=== PATIENT | male | born 1930 | race Caucasian/White ===

== ENCOUNTER 2017-02-10 19:21 | Inpatient (IN) | payer MEDICARE, MEDICAID ==
[2017-02-10 19:44] LABS: #Eosinphils 0.2 thou/uL (0.0-0.7); #Lymphocytes 1.1 thou/uL (1.20-3.40); #Monocytes 0.9 thou/uL (0.11-0.59); #Neutrophils 6.3 thou/uL (1.40-6.50); %Eosinophils 2.2 % (0.0-10.0); %Lymphocytes 13.3 % (21.0-51.0); %Monocytes 10.6 % (0.0-10.0); Hematocrit 39.2 % (42.0-52.0); Mean Platelet Volume 7.1 fL (7.4-10.4); Red Blood Cell (RBC) Count 4.09 mill/uL (4.70-6.10); White Blood Cell (WBC) Count 8.6 thou/uL (4.8-10.8)
[2017-02-10 20:06] LABS: PTT 35.6 SEC (22.9-36.1); Prothrombin Time 14.5 SEC (12.0-14.7)
[2017-02-10 20:07] LABS: ALT (SGPT) 36 U/L (8-55); AST (SGOT) 47 U/L (5-34); Alkaline Phosphatase 94 U/L (40-150); Anion Gap 12 mmol/L (10-20); BUN (Urea Nitrogen) 13 mg/dL (8.4-25.7); Bilirubin, Total 0.6 mg/dL (0.2-1.2); Calc. Creatinine Clearance 0 mL/min (70-130); Calcium 8.8 mg/dL (7.8-10.44); Carbon Dioxide 24 mmol/L (23-31); Chloride 102 mmol/L (98-107); Estimated GFR-MDRD 80; Globulin 3.5 g/dL (2.4-3.5); Protein, Total 6.7 g/dL (5.8-8.1)
[2017-02-10 20:11] LABS: Lactic Acid - Sepsis 1.8 mmol/L (0.5-2.2)
[2017-02-10 20:17] LABS: Lipase Less than 4 U/L (8-78); Magnesium 1.8 mg/dL (1.6-2.6)
[2017-02-10 20:20] LABS: Troponin I 0.012 ng/mL (< 0.028)
--- NOTE | 2017-02-10 21:34 | RAD ---
PORTABLE CHEST: 02/10/17 HISTORY: Altered mental status. Syncope. The heart size is within normal limits. There are atherosclerotic changes of the aorta. The lungs ar e clear of infiltrates. There are arthritic changes in the shoulders. IMPRESSION: No active intrathoracic disease. POS: [facility]
--- NOTE | 2017-02-10 22:28 | CT ---
CT OF BRAIN PERFORMED WITHOUT CONTRAST ENHANCEMENT: 02/10/17 HISTORY: Altered mental status. There is generalized ventricular and sulcal prominence with decreased attenuation of the periventric ular white matter consistent with some chronic ischemic white matter change. There is no signs of in tracerebral hemorrhage or extra-axial fluid collections. Mastoid air cells are clear. The visualized sinuses show fairly extensive mucosal disease including the bilateral ethmoid, sphenoid, maxillary and frontal sinus regions. IMPRESSION: No acute intracranial abnormalities. POS: [facility]
[2017-02-10 23:09] LABS: Bilirubin Negative (Negative); Blood, Urine Moderate (Negative); Glucose, Urine (Dipstick) Negative (Negative); Ketone, Urine Negative (Negative); Nitrite Negative (Negative); Protein, Urine (Dipstick) Trace mg/dL (Neg-Trace); Urobilinogen > or = 8.0 mg/dL (0.2-1.0)
[2017-02-10 23:13] LABS: Bacteria/HPF None Seen HPF (None Seen); Hyaline Casts/LPF 0-3 HYALINE CAST LPF (0-3 Hyaline); RBC/HPF 21-50 HPF (0-3); Squamous Epithelial 0-3 HPF (0-3); WBC/HPF 0-3 HPF (0-3)
[2017-02-10 23:18] LABS: T4 4.1 ug/dL (4.87-11.72)
[2017-02-10] MEDS ORDERED: cefTRIAXone\\ROCEPHIN 2 GM VIAL ONE (23:57)
[2017-02-10] MEDS ORDERED: Sodium Chloride 0.9% 100 ML ONE (23:57)
[2017-02-11] MEDS ORDERED: Ondansetron HCl/PF 4 MG/2 ML Vial IVP PRN ×2 (03:04→06:50)
[2017-02-11] MEDS ORDERED: Ondansetron ODT 4 MG TAB SL PRN (03:04)
[2017-02-11] MEDS ORDERED: Sodium Chloride 0.9% 1,000 ML IV SCH (03:04)
[2017-02-11 03:33] VITALS: BMI 19.5
[2017-02-11] MEDS ORDERED: Senokot 8.6 MG TAB PO PRN (06:50)
[2017-02-11] MEDS ORDERED: Milk Of Magnesia 30 ML UDCUP PO PRN (06:50)
[2017-02-11] MEDS ORDERED: Eucerin (Mineral Oil/Petrolatum,White) 30 gm Jar TOP PRN (06:50)
[2017-02-11] MEDS ORDERED: Ondansetron ODT 4 MG TAB PO PRN (06:50)
[2017-02-11] MEDS ORDERED: Artificial Tears 18 DROP/0.9 ML EA EYE PRN (06:50)
[2017-02-11] MEDS ORDERED: Acetaminophen 325 MG TAB PO PRN (06:50)
[2017-02-11] MEDS ORDERED: Loperamide HCl 2 MG CAP PO PRN (06:50)
[2017-02-11] MEDS ORDERED: Mag-Al 1200 mg/1200 mg/30 ML UDCUP PO PRN (06:50)
[2017-02-11] MEDS ORDERED: Loratadine 10 MG TAB PO PRN (06:50)
[2017-02-11] MEDS ORDERED: Sodium Chloride 0.65% Nasal 44 ML BOT EA NARE PRN (06:50)
[2017-02-11] MEDS ORDERED: hydrALAZINE 20 MG/ML VIAL SLOW IVP PRN (06:50)
[2017-02-11] MEDS ORDERED: Zolpidem Tartrate 5 MG TAB PO PRN (06:50)
[2017-02-11] MEDS ORDERED: Diabetic Tussin 200 MG/10 ML UDCUP PO PRN (06:50)
[2017-02-11] MEDS ORDERED: HYDROcodone/Acetaminophen 5/325 mg Tablet PO PRN (06:50)
[2017-02-11] MEDS ORDERED: Lorazepam 0.5 MG TAB PO PRN (06:53)
[2017-02-11] MEDS ORDERED: Melatonin 3 MG TAB PO PRN (07:14)
[2017-02-11] MEDS ORDERED: FLU VACC TS2017-18 (>65YR) 0.5 ML SYRINGE IM ONE (09:00)
[2017-02-11] MEDS: Folic Acid 1 MG TAB PO SCH (09:22)
[2017-02-11] MEDS: Gabapentin 300 MG CAP PO SCH ×2 (09:22→20:15)
[2017-02-11] MEDS: Cyanocobalamin (Vitamin B-12) 1,000 MCG TAB PO SCH (09:22)
[2017-02-11] MEDS: Escitalopram Oxalate 10 mg Tablet PO SCH (09:23)
[2017-02-11] MEDS: Enoxaparin Sodium 40 MG/0.4 ML SYRINGE SC SCH (09:23)
[2017-02-11] MEDS: Artificial Tears 18 DROP/0.9 ML EA EYE SCH ×4 (09:35→21:09)
[2017-02-11] MEDS: NS 0.9% w/ 20 MEQ KCL 1,000 ML/1,000 ML BAG IV SCH ×3 (09:37→23:28)
[2017-02-11] MEDS: Metoprolol Tartrate 100 MG TAB PO SCH ×2 (09:40→20:15)
--- NOTE | 2017-02-11 13:10 | HP ---
PRIMARY CARE PHYSICIAN: Camryn Woods M.D. REASON FOR ADMISSION: Acute encephalopathy, dehydration, and pneumonia. HISTORY OF PRESENT ILLNESS: An 86-year-old male who lives at prison who was complaining of sh ortness of breath and cough and low grade fever at prison and that is why patient was taken to [facility] where they did CT scan and patient was found with infiltration to right up per lobe and left lung base. The patient was given antibiotic therapy orally with levofloxacin. Th e patient was continued to have deterioration, he was hallucinating, he was having delusion, he was having declining mental status and that is why prison sent him back to the emergency room for evaluation. As per report, the patient did not have any fever at prison. He was not having a ny other complaints other than altered mental status. Patient's family member was called to get history and they reports that when they did CT scan at [facility], they were told that he has hydrocephalus and they are going to see a physician on coming Mon. Today in our emergency room, this patient had CT brain which did not show any hydrocephalus . This patient is living at prison in [place] and his primary care physician wanted to transfer him for further evaluation. Today in our emergency room, his chest x-ray was not showing any infiltration. His routine blood te sts showed macrocytic anemia, low sodium and low potassium. His blood culture was negative by the t olga of dictation. REVIEW OF SYSTEMS: All review of systems tried to review with the patient, but unable to review bec ause of advanced dementia and encephalopathy. PAST MEDICAL HISTORY: Alzheimer's dementia with behavioral disturbance, insomnia, vitamin B12 defic iency, glaucoma, hypothyroidism, dyslipidemia, and hypertension. PAST SURGICAL HISTORY: Patient is not able to provide any surgical history and not available at [facility]. PAST PSYCHIATRIC HISTORY: Bipolar disorder, depression and anxiety, Alzheimer's dementia with behav ioral disturbance. SOCIAL HISTORY: Patient is living at [facility] in [place]. No history of tobacco, al cohol or illicit drug abuse. Patient's son is surrogate decision maker. FAMILY HISTORY: No strong family history of premature coronary artery disease, stroke or cancer. ALLERGIES: HYDROCHLOROTHIAZIDE and PENICILLIN. CURRENT HOME MEDICATIONS: Acetaminophen 650 mg q.6 hourly p.r.n., Lipitor 10 mg p.o. daily, vitamin B12 1000 mcg p.o. daily, Depakote ER 500 mg p.o. at bedtime, Aricept 10 mg p.o. at bedtime, Lexapro 10 mg p.o. daily, gabapentin 300 mg p.o. b.i.d., Xalatan eyedrops at bedtime, Levaquin 500 mg p.o. daily, Synthroid 75 mcg p.o. daily, Ativan 0.5 mg p.o. b.i.d., Milk of Magnesia 30 mL p.o. b.i.d. p. r.n., melatonin 3 mg p.o. at bedtime p.r.n., Namenda 10 mg p.o. b.i.d., metoprolol 100 mg p.o. b.i.d ., tramadol 50 mg p.o. b.i.d. p.r.n. EMERGENCY ROOM COURSE: Patient was given potassium chloride 20 mEq, Rocephin 2 g, Levaquin 750 mg, and IV fluid 1 liter. PHYSICAL EXAMINATION: VITAL SIGNS: On arrival, blood pressure 148/126, pulse 89, respiratory rate 16, temperature 98.7, s aturation 99% on room air, weight 61.2 kilograms. GENERAL: Patient is currently disoriented, confused, no acute distress. HEAD: Normocephalic, atraumatic. EYES: Pupils round, reactive to light. Extraocular muscle intact. ENT: Oropharynx within normal limits. Moist mucous membranes. No oral lesions. No pharyngeal batsheva thema, no exudate. NECK: Supple. Range of motion is normal. No meningeal signs of irritation. LUNGS: Clear to auscultation without any rhonchi or obvious rales. CARDIAC: S1, S2 regular. No murmur elicited, no gallop, no rub. ABDOMEN: Soft, bowel sounds present, nontender, nondistended. No organomegaly, no mass, no suprapu bic tenderness. BACK: Examination unremarkable, no CVA tenderness. EXTREMITIES: Upper extremity, passive movements of all joints are normal. Lower extremity, no raquel a. Good peripheral pulsation. SKIN: No skin rash. HEMATOLOGICAL SYSTEM: No lymphadenopathy. IMAGING AND SIGNIFICANT LABORATORY DATA: 1. Chest x-ray based on my review, no acute cardiopulmonary process. 2. CT brain based on my review, no acute intracranial process, no evidence of hydrocephalus. 3. CBC: WBC 8.6, hemoglobin 13.1, platelet 241. INR 1.1. 4. BMP: Sodium 135, potassium 3.4, chloride 102, carbon dioxide 24, BUN 13, creatinine 0.90, gluco se 111, calcium 8.8, lactic acid 1.8, magnesium 1.8. 5. LFT: AST 47, ALT 36, alkaline phosphatase 94, albumin 3.2, CK-MB 3.7, troponin I 0.012, ammonia 22, lipase less than 4, TSH 6.63, but free T4 is 0.66 and thyroxine 4.1. 6. Urinalysis, microscopic hematuria. Blood culture is negative. ASSESSMENT AND PLAN/IMPRESSION: 1. Acute encephalopathy, it is very difficult to ascertain his baseline status at this point janette e no family member present at bedside. This patient has advanced Alzheimer's dementia with behavior al disturbance and he is taking medication for that as well as he has underlying anxiety, depression and bipolar disorder. At this point, patient is sent from prison for altered mental status e valuation and most likely that can be explained by underlying dehydration with hyponatremia, hypokal emia, and new diagnosis of pneumonia at other emergency room. 2. Community-acquired pneumonia. This patient was recently diagnosed with pneumonia at [facility] CT scan. We will continue with levofloxacin 500 mg IV daily. At this point, his chest x-ray is unremarkable. He does not have any ongoing respiratory symptoms and he does not have any fever. 3. Hypothyroidism. He has elevated TSH, but free T4 and T3 is low, this patient will need increase dose of Synthroid to 125 mcg p.o. daily. Subsequently, patient will need further testing with TSH as an outpatient basis. 4. Macrocytic anemia. We will continue vitamin B12 1000 mcg p.o. daily, folic acid 1 mg p.o. daily . 5. Dehydration. Patient will be given IV fluid with normal saline with KCl at 75 mL per hour. We will repeat basic metabolic panel tomorrow. 6. Hyponatremia, hypokalemia. As mentioned above, the patient is getting IV fluid with potassium a nd we will repeat basic metabolic panel tomorrow. 7. Alzheimer's dementia with behavioral disturbance. We will continue Aricept 10 mg p.o. at bedtim e, Namenda 10 mg p.o. b.i.d. 8. Anxiety and depression. We will continue lorazepam 0.5 mg b.i.d. p.r.n., along with Depakote ER 500 mg p.o. daily. 9. Hypertension. We will continue metoprolol tartrate 100 mg p.o. twice day. 10. Dyslipidemia. We will continue Lipitor 10 mg p.o. at bedtime. 11. Glaucoma. We will continue Xalatan eyedrops at bedtime. 12. Deep venous thrombosis prophylaxis, Lovenox 40 mg subcu daily. 13. Gastrointestinal prophylaxis, Protonix 40 mg p.o. daily. CODE STATUS: Discussed with the patient's [id number], but based on her, patient is FULL CODE, but patient's son is surrogate decision maker and he is not available at this point to discuss. We will keep as a FULL CODE status and then we will review later. Disposition plan based on clinical course. We are expecting patient's stay in the hospital more melo n 2 midnights. While in hospital, patient will need PT, OT assessment as well. Plan of care discus sed with the family member on phone.
[2017-02-11] MEDS: Atorvastatin Calcium 10 MG TAB PO SCH (20:14)
[2017-02-11] MEDS: Donepezil HCl 10 MG TAB PO SCH (20:15)
[2017-02-11] MEDS: Latanoprost 0.005% Ophth Soln 2.5 ml Bottle EA EYE SCH (21:09)
[2017-02-12] MEDS: Levothyroxine Sodium 125 MCG TAB PO SCH (05:19)
[2017-02-12 05:30] LABS: #Eosinphils 0.1 thou/uL (0.0-0.7); #Lymphocytes 1.6 thou/uL (1.20-3.40); #Neutrophils 6.6 thou/uL (1.40-6.50); %Basophils 0.3 % (0.0-1.0); %Eosinophils 1.5 % (0.0-10.0); %Lymphocytes 16.6 % (21.0-51.0); %Monocytes 10.8 % (0.0-10.0); Hematocrit 37.5 % (42.0-52.0); Red Blood Cell (RBC) Count 3.97 mill/uL (4.70-6.10); White Blood Cell (WBC) Count 9.4 thou/uL (4.8-10.8)
[2017-02-12 05:40] LABS: ALT (SGPT) 29 U/L (8-55); AST (SGOT) 34 U/L (5-34); Alkaline Phosphatase 89 U/L (40-150); Anion Gap 10 mmol/L (10-20); BUN (Urea Nitrogen) 8 mg/dL (8.4-25.7); Bilirubin, Total 0.8 mg/dL (0.2-1.2); Calc. Creatinine Clearance 56 mL/min (70-130); Calcium 8.7 mg/dL (7.8-10.44); Carbon Dioxide 26 mmol/L (23-31); Chloride 102 mmol/L (98-107); Estimated GFR-MDRD Greater than 90; Globulin 3.3 g/dL (2.4-3.5); Protein, Total 6.3 g/dL (5.8-8.1)
[2017-02-12] MEDS ORDERED: Levothyroxine Sodium 75 MCG TAB PO SCH (06:00)
[2017-02-12] MEDS: Enoxaparin Sodium 40 MG/0.4 ML SYRINGE SC SCH (09:29)
[2017-02-12] MEDS: Gabapentin 300 MG CAP PO SCH ×2 (09:30→20:30)
[2017-02-12] MEDS: Cyanocobalamin (Vitamin B-12) 1,000 MCG TAB PO SCH (09:30)
[2017-02-12] MEDS: Folic Acid 1 MG TAB PO SCH (09:30)
[2017-02-12] MEDS: Escitalopram Oxalate 10 mg Tablet PO SCH (09:30)
[2017-02-12] MEDS: Metoprolol Tartrate 100 MG TAB PO SCH ×2 (09:30→20:31)
[2017-02-12] MEDS: Artificial Tears 18 DROP/0.9 ML EA EYE SCH ×4 (09:49→20:29)
--- NOTE | 2017-02-12 12:26 | PDOC.PN ---
- Subjective Encounter Start Date: 02/12/17 Encounter Start Time: 09:45 -: old records requested/rev Patient seen and examined. No overnight events - Objective Resuscitation Status: Resuscitation Status FULL:Full Resuscitation MAR Reviewed: Yes Vital Signs & Weight: Vital Signs (12 hours) Temp Pulse Resp BP Pulse Ox 02/12/17 08:00 97.8 F 71 16 163/89 H 96 02/12/17 05:19 99.0 F 58 L 16 145/76 H 97 02/12/17 00:44 98.4 F 61 18 164/93 H 95 Weight Weight 132 lb I&O: 02/11/17 02/12/17 02/13/17 06:59 06:59 06:59 Intake Total 620 1260 Output Total 600 Balance 620 660 Result Diagrams: 02/12/17 04:52 02/12/17 04:52 Additional Labs: Accuchecks 02/12/17 02/11/17 02/11/17 05:04 19:38 16:47 POC Glucose 91 97 97 Phys Exam - Physical Examination Constitutional: NAD HEENT: PERRLA, moist MMs, sclera anicteric Neck: no JVD, supple Respiratory: no wheezing, no rales, no rhonchi Cardiovascular: RRR, no significant murmur, no rub Gastrointestinal: soft, non-tender, no distention, positive bowel sounds Musculoskeletal: no edema, pulses present Neurological: non-focal, normal sensation, moves all 4 limbs Lymphatic: no nodes Psychiatric: normal affect Skin: no rash, normal turgor Dx/Plan (1) Community acquired bacterial pneumonia Code(s): J15.9 - UNSPECIFIED BACTERIAL PNEUMONIA Status: Acute (2) Dehydration Code(s): E86.0 - DEHYDRATION Status: Acute (3) Encephalopathy acute Code(s): G93.40 - ENCEPHALOPATHY, UNSPECIFIED Status: Acute (4) Hypokalemia Code(s): E87.6 - HYPOKALEMIA Status: Acute (5) Hyponatremia Code(s): E87.1 - HYPO-OSMOLALITY AND HYPONATREMIA Status: Acute (6) Alzheimer's dementia with behavioral disturbance Code(s): G30.8 - OTHER ALZHEIMER'S DISEASE; F02.81 - DEMENTIA IN OTH DISEASES CLASSD ELSWHR W BEHAVIORAL DISTURB Status: Chronic (7) Anxiety and depression Code(s): F41.8 - OTHER SPECIFIED ANXIETY DISORDERS Status: Chronic (8) Dyslipidemia Code(s): E78.5 - HYPERLIPIDEMIA, UNSPECIFIED Status: Chronic (9) Hypertension Code(s): I10 - ESSENTIAL (PRIMARY) HYPERTENSION Status: Chronic (10) Hypothyroidism Code(s): E03.9 - HYPOTHYROIDISM, UNSPECIFIED Status: Chronic (11) Macrocytic anemia Code(s): D53.9 - NUTRITIONAL ANEMIA, UNSPECIFIED Status: Chronic - Plan cont current plan of care, continue antibiotics, PT/OT * continue IVF * continue levaquin * medication reviewed as below * symptomatic treatment * PT/OT * consider discharge to [place] tomorrow on oral levaquin. Review of Systems - Review of Systems Other: not reliable due to dementia - Medications/Allergies Allergies/Adverse Reactions: Allergies Allergy/AdvReac Type Severity Reaction Status Date / Time hydrochlorothiazide Allergy Verified 02/11/17 03:34 Penicillins Allergy Verified 02/11/17 03:34 Medications: Current Medications Acetaminophen (Tylenol) 650 mg PO Q4H PRN PRN Reason: Headache/Fever or Pain Hydrocodone Bitart/Acetaminophen ([place] 5/325) 1 tab PO Q4H PRN PRN Reason: Moderate Pain (4-6) Al Hydroxide/Mg Hydroxide (Maalox) 30 ml PO Q6H PRN PRN Reason: Heartburn or Indigestion Artificial Tears (Tears Naturale) 0 drop EA EYE PRN PRN PRN Reason: Dry Eyes Artificial Tears (Tears Naturale) 1 drop EA EYE QID [facility] Last Admin: 02/12/17 09:49 Dose: Not Given Atorvastatin Calcium (Lipitor) 10 mg PO [facility] Last Admin: 02/11/17 20:14 Dose: 10 mg Cyanocobalamin (Vitamin B-12) 1,000 mcg PO DAILY [facility] Last Admin: 02/12/17 09:30 Dose: 1,000 mcg Divalproex Sodium (Depakote Er) 500 mg PO [facility] Last Admin: 02/11/17 20:15 Dose: 500 mg Donepezil HCl (Aricept) 10 mg PO [facility] Last Admin: 02/11/17 20:15 Dose: 10 mg Enoxaparin Sodium (Lovenox) 40 mg SC 0900 [facility] Last Admin: 02/12/17 09:29 Dose: 40 mg Escitalopram Oxalate (Lexapro) 10 mg PO DAILY [facility] Last Admin: 02/12/17 09:30 Dose: 10 mg Folic Acid (Folvite) 1 mg PO DAILY [facility] Last Admin: 02/12/17 09:30 Dose: 1 mg Gabapentin (Neurontin) 300 mg PO BID [facility] Last Admin: 02/12/17 09:30 Dose: 300 mg Guaifenesin (Robitussin Sf) 200 mg PO Q4H PRN PRN Reason: Cough Hydralazine HCl (Apresoline) 10 mg SLOW IVP Q4H PRN PRN Reason: Systolic BP > 180 Levofloxacin 500 mg/ Device 100 mls @ 100 mls/hr IVPB 2359 [facility] Last Admin: 02/11/17 23:28 Dose: 100 mls Potassium Chloride/Sodium Chloride (Ns 0.9% W/ 20 Meq Kcl) 1,000 ml in 1,000 mls @ 75 mls/hr IV .[id number] [facility] Last Admin: 02/11/17 23:28 Dose: 1,000 mls Latanoprost (Xalatan 0.005% [facility]) 1 drop EA EYE HS [facility] Last Admin: 02/11/17 21:09 Dose: 1 drop Levothyroxine Sodium (Synthroid) 125 mcg PO 0600 [facility] Last Admin: 02/12/17 05:19 Dose: 125 mcg Loperamide HCl (Imodium) 2 mg PO PRN PRN PRN Reason: Diarrhea/Loose Stools Loratadine (Claritin) 10 mg PO DAILYPRN PRN PRN Reason: Sinus Symptoms Lorazepam (Ativan) 0.5 mg PO BID PRN PRN Reason: Anxiety Magnesium Hydroxide (Milk Of Magnesium) 30 ml PO DAILYPRN PRN PRN Reason: Constipation Melatonin (Melatonin) 3 mg PO HS PRN PRN Reason: Insomnia Memantine (Namenda) 10 mg PO BID [facility] Last Admin: 02/12/17 09:30 Dose: 10 mg Metoprolol Tartrate (Lopressor) 100 mg PO BID [facility] Last Admin: 02/12/17 09:30 Dose: 100 mg Mineral Oil/White Petrolatum (Eucerin Cream) 0 gm TOP BIDPRN PRN PRN Reason: Dry Skin Ondansetron HCl (Zofran Odt) 4 mg PO Q6H PRN PRN Reason: Nausea/Vomiting Ondansetron HCl (Zofran) 4 mg IVP Q6H PRN PRN Reason: Nausea/Vomiting Pantoprazole Sodium (Protonix) 40 mg PO 2100 [facility] Senna (Senokot) 2 tab PO HSPRN PRN PRN Reason: Constipation Sodium Chloride (Flush - Normal Saline) 10 ml IVF Q12HR [facility] Last Admin: 02/12/17 09:49 Dose: Not Given Sodium Chloride (Flush - Normal Saline) 10 ml IVF PRN PRN PRN Reason: Saline Flush Sodium Chloride ([place] Nasal [place] 0.65%) 0 ml EA NARE QIDPRN PRN PRN Reason: Nasal Congestion Zolpidem Tartrate (Ambien) 5 mg PO HSPRN PRN PRN Reason: Insomnia
[2017-02-12] MEDS: NS 0.9% w/ 20 MEQ KCL 1,000 ML/1,000 ML BAG IV SCH (14:36)
[2017-02-12] MEDS: Donepezil HCl 10 MG TAB PO SCH (20:30)
[2017-02-12] MEDS: Atorvastatin Calcium 10 MG TAB PO SCH (20:30)
[2017-02-12] MEDS: Latanoprost 0.005% Ophth Soln 2.5 ml Bottle EA EYE SCH (20:31)
[2017-02-13] MEDS: NS 0.9% w/ 20 MEQ KCL 1,000 ML/1,000 ML BAG IV SCH ×2 (02:08→05:16)
[2017-02-13] MEDS: Levothyroxine Sodium 125 MCG TAB PO SCH (05:17)
[2017-02-13 08:48] VITALS: TEMP 98.7
[2017-02-13] MEDS: Escitalopram Oxalate 10 mg Tablet PO SCH (08:50)
[2017-02-13] MEDS: Metoprolol Tartrate 100 MG TAB PO SCH (08:50)
[2017-02-13] MEDS: Gabapentin 300 MG CAP PO SCH (08:50)
[2017-02-13] MEDS: Enoxaparin Sodium 40 MG/0.4 ML SYRINGE SC SCH (08:51)
[2017-02-13] MEDS: Folic Acid 1 MG TAB PO SCH (08:51)
[2017-02-13] MEDS: Cyanocobalamin (Vitamin B-12) 1,000 MCG TAB PO SCH (08:51)
[2017-02-13] MEDS: Artificial Tears 18 DROP/0.9 ML EA EYE SCH ×2 (08:51→12:02)
--- NOTE | 2017-02-13 10:45 | PDOC.PN ---
- Subjective Encounter Start Date: 02/13/17 Encounter Start Time: 10:44 Subjective: feels good. wants to go home. -: no CP?SOB/Nausea/vomiting/fever - Objective Resuscitation Status: Resuscitation Status FULL:Full Resuscitation MAR Reviewed: Yes Vital Signs & Weight: Vital Signs (12 hours) Temp Pulse Resp BP Pulse Ox 02/13/17 08:00 98.7 F 56 L 18 161/98 H 97 Weight Weight 132 lb I&O: 02/12/17 02/13/17 02/14/17 06:59 06:59 06:59 Intake Total 1260 Output Total 600 200 Balance 660 -200 Result Diagrams: 02/12/17 04:52 02/12/17 04:52 Additional Labs: Microbiology 02/10/17 22:57 Urine Straight Catheter Urine Culture - Final NO GROWTH AT 36 HOURS 02/10/17 20:56 Venous blood - Right Arm Blood Culture - Preliminary NO GROWTH AT 48 HOURS 02/10/17 20:56 Venous blood - Left Arm Blood Culture - Preliminary NO GROWTH AT 48 HOURS Laboratory Tests 02/10/17 02/10/17 02/10/17 19:32 19:39 19:39 Potassium 3.4 L Magnesium 1.8 Free T4 Thyroxine (T4) TSH 3rd Generation 6.6320 H 02/10/17 02/12/17 21:00 04:52 Potassium 3.3 L Magnesium Free T4 0.66 L Thyroxine (T4) 4.1 L TSH 3rd Generation Radiology Reviewed by me: Yes (brain CT-no hydrocephalus) Phys Exam - Physical Examination Constitutional: NAD eating by himself,sitting up HEENT: PERRLA, moist MMs, sclera anicteric, oral pharynx no lesions Neck: no nodes, no JVD, supple, full ROM Respiratory: no wheezing, no rales, no rhonchi, clear to auscultation bilateral Cardiovascular: RRR, no significant murmur Gastrointestinal: soft, non-tender, no distention, positive bowel sounds Musculoskeletal: no edema, pulses present Neurological: non-focal, normal sensation, moves all 4 limbs Psychiatric: normal affect, A&O x 3 Skin: no rash Dx/Plan (1) Community acquired bacterial pneumonia Code(s): J15.9 - UNSPECIFIED BACTERIAL PNEUMONIA Status: Acute (2) Dehydration Code(s): E86.0 - DEHYDRATION Status: Acute (3) Encephalopathy acute Code(s): G93.40 - ENCEPHALOPATHY, UNSPECIFIED Status: Resolved (4) Hypokalemia Code(s): E87.6 - HYPOKALEMIA Status: Resolved (5) Hyponatremia Code(s): E87.1 - HYPO-OSMOLALITY AND HYPONATREMIA Status: Resolved (6) Alzheimer's dementia with behavioral disturbance Code(s): G30.8 - OTHER ALZHEIMER'S DISEASE; F02.81 - DEMENTIA IN OTH DISEASES CLASSD ELSWHR W BEHAVIORAL DISTURB Status: Chronic (7) Dyslipidemia Code(s): E78.5 - HYPERLIPIDEMIA, UNSPECIFIED Status: Chronic (8) Hypertension Code(s): I10 - ESSENTIAL (PRIMARY) HYPERTENSION Status: Chronic (9) Hypothyroidism Code(s): E03.9 - HYPOTHYROIDISM, UNSPECIFIED Status: Chronic (10) Macrocytic anemia Code(s): D53.9 - NUTRITIONAL ANEMIA, UNSPECIFIED Status: Chronic - Plan plan discussed w/ family, DVT proph w/SCDs hemodynamically stable. OK to DC home. -: discussed w Son over phone. -: increase Dose of levothyroxine-scrpit given. -: cont PO ABx X7 more days & f/u w PCP. * . Review of Systems - Review of Systems Constitutional: Weakness. negative: Fever, Chills, Sweats, Malaise, Other Respiratory: negative: Cough, Dry, Shortness of Breath, Hemoptysis, SOB with Excertion, Pleuritic Pain, Sputum, Wheezing Cardiovascular: negative: Chest Pain, Palpitations, Orthopnea, Paroxysmal Noc. Dyspnea, Edema, Light Headedness, Other Gastrointestinal: negative: Nausea, Vomiting, Abdominal Pain, Diarrhea, Constipation, Melena, Hematochezia, Other Genitourinary: negative: Dysuria, Frequency, Incontinence, Hematuria, Retention , Other Musculoskeletal: negative: Neck Pain, Shoulder Pain, Arm Pain, Back Pain, Hand Pain, Leg Pain, Foot Pain, Other Neurological: negative: Weakness, Numbness, Incoordination, Change in Speech, Confusion, Seizures, Other - Medications/Allergies Allergies/Adverse Reactions: Allergies Allergy/AdvReac Type Severity Reaction Status Date / Time hydrochlorothiazide Allergy Verified 02/11/17 03:34 Penicillins Allergy Verified 02/11/17 03:34 Medications: Current Medications Acetaminophen (Tylenol) 650 mg PO Q4H PRN PRN Reason: Headache/Fever or Pain Hydrocodone Bitart/Acetaminophen ([place] 5/325) 1 tab PO Q4H PRN PRN Reason: Moderate Pain (4-6) Al Hydroxide/Mg Hydroxide (Maalox) 30 ml PO Q6H PRN PRN Reason: Heartburn or Indigestion Artificial Tears (Tears Naturale) 0 drop EA EYE PRN PRN PRN Reason: Dry Eyes Artificial Tears (Tears Naturale) 1 drop EA EYE QID [facility] Last Admin: 02/13/17 08:51 Dose: 1 drop Atorvastatin Calcium (Lipitor) 10 mg PO HS [facility] Last Admin: 02/12/17 20:30 Dose: 10 mg Cyanocobalamin (Vitamin B-12) 1,000 mcg PO DAILY [facility] Last Admin: 02/13/17 08:51 Dose: 1,000 mcg Divalproex Sodium (Depakote Er) 500 mg PO HS [facility] Last Admin: 02/12/17 20:30 Dose: 500 mg Donepezil HCl (Aricept) 10 mg PO [facility] Last Admin: 02/12/17 20:30 Dose: 10 mg Enoxaparin Sodium (Lovenox) 40 mg SC 0900 [facility] Last Admin: 02/13/17 08:51 Dose: 40 mg Escitalopram Oxalate (Lexapro) 10 mg PO DAILY [facility] Last Admin: 02/13/17 08:50 Dose: 10 mg Folic Acid (Folvite) 1 mg PO DAILY [facility] Last Admin: 02/13/17 08:51 Dose: 1 mg Gabapentin (Neurontin) 300 mg PO BID [facility] Last Admin: 02/13/17 08:50 Dose: 300 mg Guaifenesin (Robitussin Sf) 200 mg PO Q4H PRN PRN Reason: Cough Hydralazine HCl (Apresoline) 10 mg SLOW IVP Q4H PRN PRN Reason: Systolic BP > 180 Levofloxacin 500 mg/ Device 100 mls @ 100 mls/hr IVPB 2359 [facility] Last Admin: 02/12/17 23:38 Dose: 100 mls Potassium Chloride/Sodium Chloride (Ns 0.9% W/ 20 Meq Kcl) 1,000 ml in 1,000 mls @ 75 mls/hr IV .[id number] [facility] Last Admin: 02/13/17 05:16 Dose: 1,000 mls Latanoprost (Xalatan 0.005% Ophth Soln) 1 drop EA EYE HS [facility] Last Admin: 02/12/17 20:31 Dose: 1 drop Levothyroxine Sodium (Synthroid) 125 mcg PO 0600 [facility] Last Admin: 02/13/17 05:17 Dose: 125 mcg Loperamide HCl (Imodium) 2 mg PO PRN PRN PRN Reason: Diarrhea/Loose Stools Loratadine (Claritin) 10 mg PO DAILYPRN PRN PRN Reason: Sinus Symptoms Lorazepam (Ativan) 0.5 mg PO BID PRN PRN Reason: Anxiety Magnesium Hydroxide (Milk Of Magnesium) 30 ml PO DAILYPRN PRN PRN Reason: Constipation Melatonin (Melatonin) 3 mg PO HS PRN PRN Reason: Insomnia Memantine (Namenda) 10 mg PO BID [facility] Last Admin: 02/13/17 08:50 Dose: 10 mg Metoprolol Tartrate (Lopressor) 100 mg PO BID [facility] Last Admin: 02/13/17 08:50 Dose: 100 mg Mineral Oil/White Petrolatum (Eucerin Cream) 0 gm TOP BIDPRN PRN PRN Reason: Dry Skin Ondansetron HCl (Zofran Odt) 4 mg PO Q6H PRN PRN Reason: Nausea/Vomiting Ondansetron HCl (Zofran) 4 mg IVP Q6H PRN PRN Reason: Nausea/Vomiting Pantoprazole Sodium (Protonix) 40 mg PO 2100 [facility] Last Admin: 02/12/17 20:30 Dose: 40 mg Senna (Senokot) 2 tab PO HSPRN PRN PRN Reason: Constipation Sodium Chloride (Flush - Normal Saline) 10 ml IVF Q12HR [facility] Last Admin: 02/13/17 08:52 Dose: Not Given Sodium Chloride (Flush - Normal Saline) 10 ml IVF PRN PRN PRN Reason: Saline Flush Sodium Chloride ([place] Nasal [place] 0.65%) 0 ml EA NARE QIDPRN PRN PRN Reason: Nasal Congestion Zolpidem Tartrate (Ambien) 5 mg PO HSPRN PRN PRN Reason: Insomnia
[2017-02-13] MEDS ORDERED: Amlodipine 5 MG TAB PO SCH (11:15)
[2017-02-13 12:05] VITALS: BP 144/77
--- NOTE | 2017-02-13 23:52 | DIS ---
DATE OF ADMISSION: 02/11/2017 DATE OF DISCHARGE: 02/13/2017 PRIMARY CARE PHYSICIAN: Camryn Woods M.D. DISCHARGE DISPOSITION: Back to shelter. CONDITION AT THE TIME OF DISCHARGE: Stable and improved. DISCHARGE DIAGNOSES: 1. Community acquired pneumonia. 2. Acute metabolic encephalopathy, resolved. 3. Hypothyroidism. 4. Chronic macrocytic anemia. 5. Dehydration. 6. Hyponatremia and hypokalemia secondary to dehydration. 7. Alzheimer's dementia. 8. Dyslipidemia. 9. Hypertension. DISCHARGE MEDICATIONS: Include, 1. Lexapro 10 mg daily. 2. Gabapentin 300 p.o. b.i.d. 3. Donepezil 10 mg daily. 4. Depakote ER 500 at bedtime. 5. Tramadol as needed. 6. Namenda 10 mg p.o. b.i.d. 7. Metoprolol tartrate 100 mg p.o. b.i.d. 8. Vitamin B12 1000 mcg daily. 9. Atorvastatin 10 mg daily. 10. Milk of Magnesia as needed. 11. Tylenol as needed. 12. Melatonin 3 mg at bedtime as needed. 13. Ativan b.i.d. 0.5 p.r.n. 14. Artificial Tears p.r.n. 15. Latanoprost at bedtime. 16. Synthroid dose increased to 125 mcg daily from 75 mcg daily. 17. Levofloxacin 750 mg p.o. daily for 7 more days. 18. Folic acid 1 mg p.o. daily. CONSULTATIONS: None. PROCEDURES DONE IN THE HOSPITAL: 1. CT scan of the brain upon presentation, which is negative for any acute intracranial abnormality . Mucosal disease seen in most of the paranasal sinuses. 2. Chest x-ray which is clear of infiltrates. HISTORY OF PRESENT ILLNESS: Mr. Parsons is an 86-year-old male with past medical history o f diabetes, hypertension, dyslipidemia, and hypothyroidism who presented to [facility] for complaints of shortness of breath, cough, and low grade fever at the shelter where he resi beka. A CT scan done outpatient showed right upper lobe and left lung base infiltrate and he was adm itted with a presumptive diagnosis of community-acquired pneumonia. He was hemodynamically stable u juliocesar presentation. Please see admission history and physical for further details. HOSPITAL COURSE: The patient was continued on IV antibiotics and IV fluids. His mentation improved to the point where he was awake, alert, oriented x3. He was continued on IV antibiotics and cultur es were obtained. His urine culture and blood cultures have remained negative until date. CT scan of the brain done on admission did not show any overt acute changes except for sinusitis. This will be covered with antibiotic he has been on. He had low sodium and low potassium, which were supplem ented by the IV route. He was also found to have hypothyroidism and his TSH was high at 6.6. For t his reason, his levothyroxine dose was increased and he was given prescription for the new one. By the day of discharge, he was hemodynamically stable and he was eager to go home. I discussed roe s with his son, Mr. Izaguirre over the phone who was agreeable with the discharge plan. Medications wer e reconciled and case management help to arrange his transportation back to the shelter with [facility]. At this time, the patient is stable and will be discharged shortly. He was seen and examined prior to discharge. Please see hospitalist progress note from today's date for further detail. Total time spent in the discharge of this patient 32 minutes.
[2017-02-14] MEDS ORDERED: Amlodipine 5 MG TAB PO SCH (09:00)
== END 2017-02-13 17:48 | DRG 193 ==
LOC: ERS 19:21 → T4-A 02-11 02:00
PROVIDERS: ADMIT Internal Medicine; ATTEND Internal Medicine
DX: J18.9 Pneumonia, unspecified organism (principal); G93.41 Metabolic encephalopathy; F02.81 Dementia in other diseases classified elsewhere, unspecified severity, with behavioral disturbance; E87.1 Hypo-osmolality and hyponatremia; E86.0 Dehydration; G30.9 Alzheimer's disease, unspecified; D53.9 Nutritional anemia, unspecified; I10 Essential (primary) hypertension; E03.9 Hypothyroidism, unspecified; E87.6 Hypokalemia; F31.9 Bipolar disorder, unspecified; F41.9 Anxiety disorder, unspecified; H40.9 Unspecified glaucoma; Z88.0 Allergy status to penicillin; Z88.8 Allergy status to other drugs, medicaments and biological substances
CPT/HCPCS: 36415; 36416; 70450; 71010; 80053; 81003; 81015; 82140; 82553; 83605; 83690; 83735; 84436; 84439; 84443; 84484; 85025; 85610; 85730; 87040; 87086; 93005; A4216; G8978-GP-CJ; G8979-GP-CI; J0696; J1650; J1956; J7050